=== PATIENT | female | born 1950 | race Caucasian/White ===

== ENCOUNTER 2017-03-01 01:40 | Emergency (ER) | payer MEDICARE, OTHER ==
[~2017-03-01] VITALS: Ht 165.1 cm; Wt 71.9 kg
[2017-03-01] MEDS ORDERED: LEVO25TA4 PO (01:49)
[2017-03-01] MEDS ORDERED: DIPH,PERTUSS(ACELL),TET VAC/PF 0.5 ML IM-VACC ONE ×2 (01:58→02:00)
[2017-03-01 03:28] VITALS: BP 143/77
== END 2017-03-01 03:32 | disposition home or self-care (01) ==
LOC: ED 02:35
DX: S01.01XA Laceration without foreign body of scalp, initial encounter (principal); F10.129 Alcohol abuse with intoxication, unspecified; Z23 Encounter for immunization; W01.198A Fall on same level from slipping, tripping and stumbling with subsequent striking against other object, initial encounter; Y93.89 Activity, other specified; Y99.8 Other external cause status; Y92.59 Other trade areas as the place of occurrence of the external cause
CPT/HCPCS: 12002; 70450; 72125; 90471; 90715